=== PATIENT | female | born 1960 | race Caucasian/White ===

== ENCOUNTER → 2017-04-17 | Outpatient (CLI) | payer OTHER ==
--- NOTE | ~2017-04-17 | CR181 ---
[facility] A Service of [facility] RADIOLOGY TEXT RESULTS PATIENT: SUSANA REEVES LOCATION: [facility] : 60 UNIT #: [id number] AGE: [address]: Truong Rodríguez MD SEX: F ORDER DR: [id number] [address] [address] [id number] O MR#: [id number] Acc #: [id number] NAME: SUSANA REEVES : 1960 SEX: F STUDY DATE/TIME: 04/17/2017 17:40 UNIT: [facility] ROOM: STUDY DESCRIPTION: CR Lumbar Spine 2 or 3 Views Attending Physician: Trunog Rodríguez M.D. Ordering Physician: Truong Rodríguez M.D. Primary Care Physician: Truong Rodríguez M.D. MEDICAL IMAGING REPORT This report is preliminary unless electronic signature is present. EXAM Lumbar spine series dated 04/17/2017. COMPARISON Thoracic spine series dated 04/17/2017. HISTORY Evaluation for pain management. Patient has had low back pain since 1999. FINDINGS Three views of the lumbar spine were obtained. Disc osteophyte complex are noted at multiple levels with varying degrees of disc height loss. It is worse at L3-4. Adjacent endplate sclerosis and lucencies with likely developing endplate Schmorl nodes are noted at L3-4 particularly. Mild retrolisthesis of L2 with respect to L3, L3 with respect to L4 are noted. They are probably degenerative. There is mild leftward curvature of the lumbar spine with the apex at L3. Mays angle measured from the superior endplate of L1 to the superior endplate of L5 is about 9 degrees. Arthritic changes are probably present in bilateral L4-5 and L5-S1 facet joints. Dictated by... Carolynn Diggs M.D. THIS IS AN ELECTRONICALLY VERIFIED REPORT Carolynn Diggs M.D. at 04/18/2017 2:15 PM CPR/bd TD: 04/18/2017 13:21 JOB #: [id number] MEDICAL IMAGING REPORT [facility] A Service of [facility] RADIOLOGY TEXT RESULTS PATIENT: SUSANA REEVES [id number] 60 UNIT #: [id number] AGE: [address]: Truong Rodríguez MD SEX: F ORDER DR: Page 1 of 1
--- NOTE | ~2017-04-17 | CR242 ---
[facility] A Service [facility] RADIOLOGY TEXT RESULTS PATIENT: SUSANA REEVES LOCATION: [facility] : 60 UNIT #: [id number] AGE: [address]: Truong Rodríguez MD SEX: F ORDER DR: [id number] [address] [address] [id number] O MR#: [id number] Acc #: [id number] NAME: SUSANA REEVES : 1960 SEX: F STUDY DATE/TIME: 04/17/2017 17:40 UNIT: [facility] ROOM: STUDY DESCRIPTION: CR Thoracic Spine 2 Views Attending Physician: Truong Rodríguez M.D. Ordering Physician: Truong Rodríguez M.D. Primary Care Physician: Truong Rodríguez M.D. MEDICAL IMAGING REPORT This report is preliminary unless electronic signature is present. EXAM Thoracic spine series dated 04/17/2017 COMPARISON Lumbar spine series dated 04/17/2017 HISTORY Back pain since 1999. Re-evaluate for pain management. FINDINGS Three views of the thoracic spine were obtained including the swimmer's view. AP and lateral examination of the dorsal segment shows normal mineralization and a satisfactory anatomical dorsal kyphosis. All body heights, interspaces, and posterior elements are normal anatomically without any indication of malignancy, trauma, unusual paraspinal soft tissue density mass, or congenital defect. IMPRESSION Normal thoracic spine. Dictated by... Carolynn Diggs M.D. THIS IS AN ELECTRONICALLY VERIFIED REPORT Carolynn Diggs M.D. at 04/18/2017 2:15 PM CPR/boy TD: 04/18/2017 13:21 JOB #: [id number] [facility] A Service [facility] RADIOLOGY TEXT RESULTS PATIENT: SUSANA REEVES LOCATION: [facility] : 60 UNIT #: [id number] AGE: [address]: Truong Rodríguez MD SEX: F ORDER DR: MEDICAL IMAGING REPORT Page 1 of 1
== END | disposition home or self-care (01) ==
LOC: SRAD 17:27
DX: M54.5 Low back pain (principal); M54.6 Pain in thoracic spine
CPT/HCPCS: 72070; 72100